=== PATIENT | male | born 1960 | race Caucasian/White ===

== ENCOUNTER 2017-02-16 09:15 | Emergency (ER) | payer BC ==
[2017-02-16 09:25] VITALS: BMI 33.5
--- NOTE | 2017-02-16 09:57 | DR.GENAD ---
HPI - PCP Primary Care Physician: Dr. Solis [place], [place] - HPI Comment HPI Comment: Patient was driving from [facility] and experienced an acute onset of dizziness and nausea. "niya made me want to fall to the right." Pt denies headache. He denies fever, chills, nausea and vomiting. - Complaint/Symptoms Chief Complaint Doctors Comments: dizziness Chief Complaint:: Has been feeling dizzy last couple of days. - Nurses notes reviewed Nurses Notes Review: Yes - Source History Provided: Patient - Mode of Arrival Mode of Arrival: Ambulatory - Timing Onset of Chief Complaint: 02/14/17 Came on: Suddenly - Duration Duration: Unknown - Severity Severity: Moderate - Modifying Factors Improves:: time - Associated Signs and Symptoms Associated Signs and Symptoms: severe nausea PMH - PMH Past Medical History: Yes Past Medical History: Hypertension Past Medical History Comment: neuropathy Past Surgical History: No - Family History History of Family Medical Conditions: Yes Family Medical History: Cancer - Social History Does patient currently use any type of tobacco product: No Have you used tobacco products in the last 12 months: No Type of Tobacco Use: None Does any household member use tobacco: No Alcohol Use: None Do you use any recreational Drugs:: No Lives With: Spouse Lives Where: Home - infectious screening In the last 2 months have you had wt loss of >10#?: NO Have you had fever, night sweats or hemotysis?: No Have you traveled outside the country in the last 6 months?: No Isolation: Standard ROS - Review of Systems Constitutional: Weakness Eyes: No Symptoms Reported ENTM: No Symptoms Reported Respiratoy: No Symptoms Reported Cardiovascular: No Symptoms Reported Gastrointestinal/Abdominal: No Symptoms Reported, See HPI, Nausea Genitourinary: No Symptoms Reported Neurological: Dizziness Musculoskeletal: No Symptoms Reported Integumentary: No Symptoms Reported Psychiatric: No Symptoms Reported PE - Vital Signs Vitals: Temperature 98.6 F Pulse Rate 82 Respiratory Rate 20 Blood Pressure [Standing] 121/68 Blood Pressure [Sitting] 126/73 Blood Pressure [Lying] 122/73 Blood Pressure 126/75 O2 Sat by Pulse Oximetry 96 - General Limitations: No Limitations General Appearance: Alert, In No Apparent Distress - Head Head Exam: Normal Inspection - Eyes Eye exam: Normal Appearance, PERRL - ENT ENT Exam: Normal Exam, Normal Oropharynx, Mucous Membranes Moist External Ear Exam: Normal External Inspection Nose Exam: Normal Nose Exam Mouth Exam: Normal Inspection Throat Exam: Normal Inspection - Neck Neck Exam: Normal Inspection, Full ROM, Trachea Midline - Chest Chest Inspection: Normal Inspection, Symmetric Chest Wall Rise - Respiratory Respiratory Exam: Normal Lung Sounds Bilat Respiratory Exam: Bilateral Clear to Auscultation - Cardiovascular Cardiovascular Exam: Regular Rate, Normal Rhythm - Abdominal Exam Abdominal Exam: Normal Inspection, Normal Bowel Sounds, Soft - Extremities Extremities Exam: Normal Inspection, Full ROM - Back Back Exam: Normal Inspection, Full ROM - Neurologic Neurological Exam: Alert, Oriented X3, CN II-XII Intact - Psychiatric Psychiatric Exam: Normal Affect, Normal Mood - Skin Skin Exam: Warm, Dry, Intact, Normal Color MDM - Differential Diagnosis Differential Diagnosis: vertigo, inner ear infection, dehydration Course - Reevaluation 1st: Resolved - Education/Counseling Education/Counseling: Patient Educated On: Diagnosis, Prognosis, Needs for Follow Up ROR - Labs Reviewed Laboratory Results Reviewed?: Yes Result Diagrams: 02/16/17 10:16 02/16/17 10:16 Laboratory: WBC 6.1 X10^3/uL (3.6-10.0) 02/16/17 10:16 RBC 4.96 X10^6/uL (4.7-6.0) 02/16/17 10:16 Hgb 15.4 g/dL (13.5-18.0) 02/16/17 10:16 Hct 44.4 % (42.0-54.0) 02/16/17 10:16 MCV 89.4 fL (80.0-100.0) 02/16/17 10:16 MCH 31.1 pg (27.0-34.0) 02/16/17 10:16 MCHC 34.8 g/dL (33.0-35.0) 02/16/17 10:16 RDW 12.9 % (11.6-16.5) 02/16/17 10:16 Plt Count 312 X10^3/uL (150.0-450.0) 02/16/17 10:16 MPV 6.5 fL (7.4-11.0) L 02/16/17 10:16 Neut % 64.4 % (42.0-75.0) 02/16/17 10:16 Lymph % 23.8 % (21.0-51.0) 02/16/17 10:16 Burnett % 7.7 % (0.0-13.0) 02/16/17 10:16 Eos % 2.6 % (0.9-2.9) 02/16/17 10:16 Baso % 1.5 % (0.2-1.0) H 02/16/17 10:16 Neut # 4.0 x10^3/uL (2.2-4.8) 02/16/17 10:16 Lymph # 1.5 X10^3/uL (1.3-2.9) 02/16/17 10:16 Burnett # 0.5 x10^3/uL (0.3-0.8) 02/16/17 10:16 Eos # 0.2 x10^3/uL (0.0-0.2) 02/16/17 10:16 Baso # 0.1 X10^3/uL (0.0-0.1) 02/16/17 10:16 Absolute Nucleated RBC 0.1 /100WBC 02/16/17 10:16 Sodium 138 mmol/L (136-145) 02/16/17 10:16 Corrected Sodium 139 mmol/L (136-145) 02/16/17 10:16 Potassium 3.7 mmol/L (3.5-5.1) 02/16/17 10:16 Chloride 103 mmol/L (98-107) 02/16/17 10:16 Carbon Dioxide 27.2 mmol/L (21-32) 02/16/17 10:16 BUN 12 mg/dL (7-18) 02/16/17 10:16 Creatinine 1.05 mg/dL (0.70-1.30) 02/16/17 10:16 Est GFR (MDRD) Af Amer > 60 (>60) 02/16/17 10:16 Est GFR (MDRD) Non-Af > 60 (>60) 02/16/17 10:16 Glucose 146 mg/dL (65-99) H 02/16/17 10:16 Calcium 8.9 mg/dL (8.5-10.1) 02/16/17 10:16 Corrected Calcium TNP 02/16/17 10:16 Total Bilirubin 0.50 mg/dL (0.2-1.0) 02/16/17 10:16 AST 26 Units/L (15-37) 02/16/17 10:16 ALT 55 Units/L (12-78) 02/16/17 10:16 Alkaline Phosphatase 92 Units/L (46-116) 02/16/17 10:16 Total Protein 7.7 g/dL (6.4-8.2) 02/16/17 10:16 Albumin 3.8 g/dL (3.4-5.0) 02/16/17 10:16 Globulin 3.9 g/dL (2.5-4.5) 02/16/17 10:16 Albumin/Globulin Ratio 1.0 Ratio (1.1-2.1) L 02/16/17 10:16 Specimen Type Clean catch urine 02/16/17 10:31 Urine Color Yellow (YELLOW) 02/16/17 10:31 Urine Appearance Hazy (CLEAR) 02/16/17 10:31 Urine pH 6.0 (5.0 - 8.0) 02/16/17 10:[address] 1.010 (1.000-1.030) 02/16/17 10:31 Urine Protein Negative (NEGATIVE) 02/16/17 10:31 Urine Glucose (UA) Negative (NEGATIVE) 02/16/17 10:31 Urine Ketones Negative (NEGATIVE) 02/16/17 10:31 Urine Occult Blood 3+ (NEGATIVE) 02/16/17 10:31 Urine Nitrite Negative (NEGATIVE) 02/16/17 10:31 Urine Bilirubin Negative (NEGATIVE) 02/16/17 10:31 Urine Urobilinogen Normal (NORMAL) 02/16/17 10:31 Ur Leukocyte Esterase Negative (NEGATIVE) 02/16/17 10:31 Urine RBC 3-5 /HPF (NEGATIVE) 02/16/17 10:31 Urine WBC 0-1 /HPF (NEGATIVE) 02/16/17 10:31 Ur Squamous Epith Cells Rare /HPF (NEGATIVE) 02/16/17 10:31 Urine Bacteria Negative /HPF (NEGATIVE) 02/16/17 10:31 Urine Sperm Moderate /HPF (NEGATIVE) 02/16/17 10:31 Ur Culture Indicated? No/not indicated 02/16/17 10:31 - Diagnosis Discharge Problem: Dizziness, Hematuria - Discharge Plan Disposition: 01 HOME, SELF-CARE Condition: Stable - Follow ups/Referrals Follow ups/Referrals: NFD,None [Primary Care Provider] - 3 days - Instructions Instructions: Labyrinthitis Additional Notes - Additional Notes Additional Notes: Patient has h/o microscopic hematuria. he will f/u with his PCP for this problem.
[2017-02-16 10:31] LABS: BASOPHILS # (AUTO) 0.1 X10^3/uL (0.0-0.1); BASOPHILS % (AUTO) 1.5 % (0.2-1.0); EOSINOPHILS # (AUTO) 0.2 x10^3/uL (0.0-0.2); EOSINOPHILS % (AUTO) 2.6 % (0.9-2.9); HEMATOCRIT 44.4 % (42.0-54.0); HEMOGLOBIN 15.4 g/dL (13.5-18.0); LYMPHOCYTES # (AUTO) 1.5 X10^3/uL (1.3-2.9); LYMPHOCYTES % (AUTO) 23.8 % (21.0-51.0); MEAN CORPUSCULAR HEMOGLOBIN 31.1 pg (27.0-34.0); MEAN CORPUSCULAR HGB CONC 34.8 g/dL (33.0-35.0); MEAN CORPUSCULAR VOLUME 89.4 fL (80.0-100.0); MEAN PLATELET VOLUME 6.5 fL (7.4-11.0); MONOCYTES # (AUTO) 0.5 x10^3/uL (0.3-0.8); MONOCYTES % (AUTO) 7.7 % (0.0-13.0); NEUTROPHILS % (AUTO) 64.4 % (42.0-75.0); PLATELET COUNT 312 X10^3/uL (150.0-450.0); RED BLOOD COUNT 4.96 X10^6/uL (4.7-6.0); RED CELL DISTRIBUTION WIDTH 12.9 % (11.6-16.5); WHITE BLOOD COUNT 6.1 X10^3/uL (3.6-10.0)
[2017-02-16 10:43] LABS: ALANINE AMINOTRANSFERASE 55 Units/L (12-78); ALBUMIN 3.8 g/dL (3.4-5.0); ALKALINE PHOSPHATASE 92 Units/L (46-116); ASPARTATE AMINO TRANSFERASE 26 Units/L (15-37); BLOOD UREA NITROGEN 12 mg/dL (7-18); CALCIUM 8.9 mg/dL (8.5-10.1); CARBON DIOXIDE 27.2 mmol/L (21-32); CHLORIDE 103 mmol/L (98-107); COR NA(FOR HYPERGLY) 139 mmol/L (136-145); CREATININE 1.05 mg/dL (0.70-1.30); GLUCOSE 146 mg/dL (65-99); SODIUM 138 mmol/L (136-145); TOTAL PROTEIN 7.7 g/dL (6.4-8.2); eGFR BLACK RACES > 60 (>60); eGFR NON BLACK RACES > 60 (>60)
[2017-02-16 11:01] VITALS: BP 126/73
[2017-02-16 11:06] LABS: BILIRUBIN,URINE NEGATIVE (NEGATIVE); BLOOD/HEMOGLOBIN,URINE 3+ (NEGATIVE); GLUCOSE, URINE NEGATIVE (NEGATIVE); KETONES,URINE NEGATIVE (NEGATIVE); LEUKOCYTE ESTERASE ,URINE NEGATIVE (NEGATIVE); NITRITES,URINE NEGATIVE (NEGATIVE); PROTEIN,URINE NEGATIVE (NEGATIVE); UROBILINOGEN,URINE NORMAL (NORMAL)
[2017-02-16 11:23] LABS: APPEARANCE,URINE HAZY (CLEAR); COLOR,URINE YELLOW (YELLOW)
[2017-02-16 11:24] LABS: BACTERIA,URINE NEGATIVE /HPF (NEGATIVE); SPERM,URINE MODERATE /HPF (NEGATIVE); SQUAMOUS EPITHELIAL CELL,UR RARE /HPF (NEGATIVE)
== END 2017-02-16 11:59 | disposition home or self-care (01) ==
LOC: ER 09:38
DX: R42 Dizziness and giddiness (principal); R31.9 Hematuria, unspecified
CPT/HCPCS: 36415; 80053; 81001; 85025; 99282